=== PATIENT | female | born 1995 | race Caucasian/White ===

== ENCOUNTER 2021-10-22 11:12 | Emergency (ER) | payer OTHER ==
[~2021-10-22] VITALS: Ht 157.5 cm; Wt 91.2 kg
--- NOTE | 2021-10-22 11:13 | PHYS DOC ---
Adult General Chief Complaint Chief Complaint: MULTIPLE COMPLAINTS HPI HPI Patient is a 26 year old female who presents with viral symptoms. She has been ill over the last 48 hours. She complains of myalgias, fever, chills, fatigue, malaise. She has had mild cough symptoms that are nonproductive. No shortness of breath. Complains of bitemporal headaches. She has exposure to many people at her job who have tested positive for COVID lately. She has no vomiting but does have mild nausea symptoms. Denies abdominal pain. No urinary symptoms. Review of Systems Review of Systems Constitutional: As documented in HPI Eyes: Denies change in visual acuity, redness, or eye pain HENT: Upper airway congestion, see HPI Respiratory: Mild cough, no shortness of Cardiovascular: No additional information not addressed in HPI GI: Denies abdominal pain : Denies Musculoskeletal: myalgias Integument: Denies rash or skin lesions Neurologic: Denies headache All other systems were reviewed and found to be within normal limits, except as documented in this note. Physical Exam Physical Exam Constitutional: Well developed, well nourished, no acute distress HENT: Normocephalic, atraumatic, bilateral external ears normal, oropharynx moist, posterior OP clear Eyes: PERRLA, EOMI, conjunctiva normal, no discharge. Neck: Normal range of motion, no tenderness Cardiovascular:Heart rate regular rhythm, no murmur Lungs & Thorax: Bilateral breath sounds clear to auscultation Skin: Warm, dry, no erythema, no rash Extremities: No tenderness, no edema Neurologic: Alert and oriented X 3 EKG EKG [] Radiology/Procedures Radiology/Procedures ED summary: Patient seen in the emergency department for COVID-like symptoms. She has multiple exposures. Her lungs are clear. She has good air movement in all [place]. Oxygen saturation greater than 95% on room air. Otherwise, no acute findings on her exam to suggest bacterial infection. COVID swab was collected and sent to lab. She is stable for discharge home. She does complain of mild nausea and headache symptoms and she is prescribed some medications to help with symptom relief at home. Also recommended she use [id number] medications as needed. Follow-up with primary care doctor. Quarantine until her results are known Course & Med Decision Making Course & Med Decision Making Pertinent Labs and Imaging studies reviewed. (See chart for details) [] Dragon Disclaimer Dante Disclaimer This electronic medical record was generated, in whole or in part, using a voice recognition dictation system. Departure Departure Impression: Primary Impression: Viral syndrome Disposition: HOME / SELF CARE / HOMELESS Condition: GOOD Scripts Ondansetron (ONDANSETRON ODT) 4 Mg Tab.rapdis 1 TAB PO PRN Q6-8HRS, #10 TAB Prov: BRIANNA NGUYEN DO 10/22/21 Butalbit/Acetamin/Caff/Codeine ([id number]) 1 Each Capsule 2 EACH PO BID for headache, #16 CAP Prov: BRIANNA NGUYEN DO 10/22/21 BRIANNA NGUYEN DO Oct 22, 2021 11:13
[2021-10-22 11:15] VITALS: BP 116/59
[2021-10-22] MEDS ORDERED: ONDA4TAB12 PO (11:29)
[2021-10-22] MEDS ORDERED: BUTA1CAP8 PO (11:29)
--- NOTE | 2021-10-23 16:45 | NUR ---
IP: Informed pt of positive covid test and the need to quarantine for 10- days. Pt verbalized understanding.
== END 2021-10-22 11:35 | disposition home or self-care (01) ==
LOC: ER 11:12
DX: U07.1 COVID-19 (principal)
CPT/HCPCS: 99283; U0003; U0005